=== PATIENT | male | born 1950 | race Caucasian/White ===

== ENCOUNTER 2017-06-30 05:34 | Inpatient (IN) | payer OTHER ==
[2017-06-23 13:23] LABS: URINE BILIRUBIN NEGATIVE (Negative); URINE BLOOD TRACE (Negative); URINE COLOR YELLOW; URINE GLUCOSE-RANDOM* NEGATIVE (Negative); URINE KETONES NEGATIVE (Negative); URINE LEUKOCYTES-REFLEX NEGATIVE (Negative); URINE PROTEIN (DIPSTICK) NEGATIVE (Negative); URINE SPECIFIC GRAVITY 1.025 (1.003-1.035); URINE UROBILINOGEN 0.2 E.U./dl (0.2-1.0)
[2017-06-23 13:24] LABS: HEMATOCRIT 41.9 % (42.0-52.0); MCH 32.6 pg (26.0-34.0); MCHC 35.7 g/dL (28.0-37.0); MCV 91.2 fL (80.0-100.0); RBC 4.6 mil/uL (4.50-6.00); RDW 12.8 % (10.5-14.5); WBC 9.1 thou/uL (4.0-11.0)
[2017-06-23 13:37] LABS: ALBUMIN 3.9 g/dL (3.4-5.0); CALCIUM 9.3 mg/dL (8.5-10.1); CREATININE 0.9 mg/dL (0.7-1.3); POTASSIUM 4.4 mmol/L (3.5-5.1); TOTAL BILIRUBIN 0.4 mg/dL (<0.1-1.0); TOTAL PROTEIN 7.7 g/dL (6.4-8.2)
[2017-06-23 13:43] LABS: PROTIME 9.9 Seconds (9.3-11.4)
[~2017-06-30] VITALS: Ht 170.2 cm; Wt 92.1 kg
--- NOTE | ~2017-06-30 | O ---
[facility] [place] [address] OPERATIVE REPORT Name: CALIN THAO Room #: 403-P [facility] IN M.R.#: [id number] Admission: 06/30/17 Attend Phys: Cole Pulliam MD Discharge: Date of : 54 Report #: [id number] THIS REPORT FOR: //name// CC: Ras Pulliam DATE OF SERVICE: 06/30/2017 PREOPERATIVE DIAGNOSIS: Right knee osteoarthritis. POSTOPERATIVE DIAGNOSIS: Right knee osteoarthritis. PROCEDURE: Right total knee arthroplasty. SURGEON: Cole Pulliam MD AUXILIARY POWER EQUIPMENT OPERATOR: Fannie Viera PA-C ANESTHESIA: Spinal with an adductor canal block. IMPLANTS: [employer] size 5 Legion cobalt chrome posterior stabilized femur, size 4 tibia, size 9 polyethylene, and size 35 patella. TOURNIQUET TIME: 67 minutes. ESTIMATED BLOOD LOSS: 50 mL. COMPLICATIONS: None. SPECIMENS: None. CONDITION UPON LEAVING THE OPERATING ROOM: Stable. INDICATIONS FOR PROCEDURE: The patient is a 67-year-old gentleman with severe right knee osteoarthritis who failed conservative treatment for this and after discussion with him, he elected for right total knee arthroplasty. DESCRIPTION OF PROCEDURE: Risks, benefits, alternatives, and complications were discussed in detail with the patient including, but not limited to risk of anesthesia, risk of damage to nerves, arteries, blood vessels, risk for infection, bleeding, risk for continued knee pain and need for reoperation. Informed consent was obtained from the patient. Right knee was appropriately marked in the preoperative holding area. Adductor canal block was placed by anesthesia. Ancef was given for preoperative antibiotics. He was brought to the operating room and transferred to the operating room table. Spinal anesthesia was induced without complication. He was then placed in supine [facility] [address] [place] [address] OPERATIVE REPORT Name: CALIN THAO Room #: 403-P [facility] IN M.R.#: [id number] Admission: 06/30/17 Attend Phys: Cole Pulliam MD Discharge: Date of : 54 Report #: [id number] position on operating room table and tourniquet was placed on the right thigh. Right lower extremity was prepped and draped in normal sterile fashion. Timeout was performed properly identifying the patient, procedure as well as the instrumentation and implants. All in the operating room were in agreement. Right lower extremity was exsanguinated, tourniquet was inflated. Tourniquet time was 67 minutes. Standard midline approach to the knee was made with 10-blade through the skin. Dissection was taken down sharply to the fascia and deep flaps were developed medially and laterally. Fresh 10-blade was used to make a medial parapatellar arthrotomy and the knee was inspected. There was extensive tricompartmental osteoarthritic change. Anterior horns of the meniscus were removed sharply. Patella was everted. Fat pad was removed sharply. ACL and PCL were removed sharply. Deep retractors were placed. Drill was used to gain access to the canal of the femur and distal femoral cutting block was pinned in place. Distal femoral cut was made. Femur was sized, found to be a size 5. The size 5, 4-in-1 cutting block was placed. Anterior, posterior and chamfer cuts were made. Knee was then hyperflexed and remainder of the menisci were removed with Bovie cautery. The drill was used to gain access to the canal of the tibia and tibial resection was based off the lateral plateau. Tibial resection guide was pinned in place and resection was made. After this, posterior osteophytes were removed from the femur and the flexion and extension spacer was placed, found to have good balance in flexion and in extension, it was somewhat tight medially and the medial osteophytes were removed off of the tibial plateau as well as a limited medial release using the pie crust technique. This balanced the knee well. After this, the tibia was sized, found to be a size 4, the size 4 tibial trial was placed, size 5 femoral trial was placed and the box cut was made. The post was placed and a size 9 polyethylene was placed. Knee was taken through range of motion, found to be stable, found to have good balance in flexion and extension both medially and laterally. 9 mm was taken off the posterior surface of the patella and a size 32 patellar trial button was placed. Knee was taken through range of motion, found to be stable, found to have good patellar tracking. Trial components were removed. Bony ends were thoroughly irrigated with normal saline and a final size 4 tibia, size 5 Legion cobalt chrome posterior stabilized femur and a size 32 patella were cemented in place using standard cementation techniques. While the cement cured, a periarticular injection consisting of morphine, ropivacaine, epinephrine and Toradol was placed around the knee joint. After the cement cured, tourniquet was deflated. The knee was thoroughly irrigated with normal saline and hemostasis was obtained with Bovie cautery. A final size 9 polyethylene was placed and a gram of vancomycin was placed in the knee joint. The fascia was closed with 0 Vicryl, skin was closed with 2-0 Vicryl and 3-0 Monocryl, Dermabond and SERENITY dressing were applied. The patient tolerated this [facility] [address] [place] [address] OPERATIVE REPORT Name: CALIN THAO Room #: 403-P ADM IN M.R.#: [id number] Admission: 06/30/17 Attend Phys: Cole Pulliam MD Discharge: Date of : 54 Report #: [id number] procedure well and went to the recovery room under the care of anesthesia postoperatively. <ELECTRONICALLY SIGNED> By: Cole Pulliam MD 07/01/17 0725 [id number] [id number] Cole Pulliam MD /nt
--- NOTE | ~2017-06-30 | EKG ---
[address] [address] ELECTROCARDIOGRAM REPORT Name: CALIN THAO Room #: PRE IN [facility]#: [id number] Admission: Attend Phys: Cole Pulliam MD Discharge: Date of : 54 Report #: [id number] THIS REPORT FOR: //name// [facility] Test Date: 2017-06-23 Test Time: 13:04:18 Pat Name: CALIN THAO Department: Room: Gender: Armament Mechanic: Jasvir JENKINS : 1950 Requested By: Cole Pulliam Order Number: [id number] MD: Carlitos Herrmann Measurements Intervals [place] Rate: 55 P: 19 [place]: 163 QRS: -15 QRSD: 94 T: 47 QT: 434 QTc: 416 Interpretive Statements Sinus rhythm Borderline left axis deviation No previous ECG available for comparison Electronically Signed On 06-29-2017 21:31:22 CDT by Carlitos Herrmann [email or web address] <ELECTRONICALLY SIGNED> By: Carlitos Herrmann MD 06/29/17 2131 1304 1304 MD ANIA Dejesus
[~2017-06-30 05:34] MED LIST: ALTACE10 MG PO; ASPIR 8181 MG PO; ASTRAGALUS ROOT1 GM PO; CALCIUM PO; FISH OIL 1,0001 EAC9 PO; IBUPROFEN 200200 M1 PO; MAGOX 400400 MG PO; METFORMIN HCL500 MG PO; POTASSIUM GLUC500 MG PO; PROBIOTIC PO; TYLENOL EXTRA500 MG PO; VITAMIN D32000 UNIT PO
[2017-06-30 10:15] VITALS: BP 150/74
[2017-06-30 17:24] VITALS: BP 153/76
[2017-06-30 20:00] VITALS: BP 161/77
[2017-07-01] VITALS: BP 114/58
[2017-07-01 03:30] VITALS: BP 146/68
[2017-07-01 06:21] LABS: HEMATOCRIT 37.1 % (42.0-52.0); HEMOGLOBIN 12.5 gm/dL (14.0-18.0); MCH 31.3 pg (26.0-34.0); MCHC 33.8 g/dL (28.0-37.0); MCV 92.6 fL (80.0-100.0); RBC 4.01 mil/uL (4.50-6.00); RDW 12.9 % (10.5-14.5); WBC 16.7 thou/uL (4.0-11.0)
[2017-07-01 07:19] VITALS: BP 143/64
[2017-07-01] MEDS ORDERED: CVS BUFFERED A325 MG PO (10:29)
[2017-07-01] MEDS ORDERED: MS CONTIN15 MG PO (10:29)
[2017-07-01] MEDS ORDERED: PERCOCET PO (10:29)
[2017-07-01] MEDS ORDERED: NEURONTIN 300300 M1 PO (10:30)
[2017-07-01 11:07] VITALS: BP 143/64
[2017-07-01 13:43] VITALS: BP 143/64
== END 2017-07-01 14:23 | disposition home health service (06) | DRG 470 ==
LOC: TBA 05:34 → 4N 05:34 → PRE 06:48 → 4N 16:58
PROVIDERS: Orthopaedic Surgery
PROC: 3E0T3BZ Introduction of Anesthetic Agent into Peripheral Nerves and Plexi, Percutaneous Approach (ICD-10-PCS; principal; 2017-06-30)
PROC: 0SRC0J9 Replacement of Right Knee Joint with Synthetic Substitute, Cemented, Open Approach (ICD-10-PCS; principal; 2017-06-30)
DX: M17.11 Unilateral primary osteoarthritis, right knee (principal)
CPT/HCPCS: 10790; 50010; 50101; 50415; 50954; 51130; 51225; 51771; 53000; 53078; 53364; 54118; 56527; 56528; 57095; 62110; 62850; 65085; 70005

== ENCOUNTER → 2018-02-09 | Outpatient (CLI) | payer OTHER ==
[~2018-02-09] MED LIST changes: +CVS BUFFERED A325 MG PO; +MS CONTIN15 MG PO; +NEURONTIN 300300 M1 PO; +PERCOCET PO
== END ==
LOC: MRI 13:03
DX: M75.81 Other shoulder lesions, right shoulder (principal); M75.101 Unspecified rotator cuff tear or rupture of right shoulder, not specified as traumatic